=== PATIENT | male | born 1960 | race Caucasian/White ===

== ENCOUNTER 2018-02-06 12:49 | Emergency (ER) | payer BC ==
[2018-02-06] MEDS ORDERED: ASPIRIN 81 MG CHEW PO ONE (12:55)
--- NOTE | 2018-02-06 13:06 | ER Report ---
History and Physical Time Seen By MD: 13:00 Hx. of Stated Complaint: PATIENT STARTED HAVING CHEST PAIN AROUND 7 THIS MORNING HPI/ROS CHIEF COMPLAINT: Chest pain HISTORY OF PRESENT ILLNESS: 50 atrial male no significant cardiac history nonsmoker exercises practically daily times in with complaint of chest pains that is a long history of acid reflux is feels similar to his acid reflux however more intense he did fly in from [facility] is out of state denies nausea vomiting diarrhea. She also the pain is localized in the parasternal area feels like is a hot coal in his chest patient had a very spicy hamburger last evening has not eaten much today patient denies any additional symptoms or complaints REVIEW OF SYSTEMS: Respiratory: No cough, no dyspnea. Cardiovascular: Chest pain or palpitation Gastrointestinal: No vomiting, no abdominal pain. Musculoskeletal: No back pain. Remainder of the 14 system rev: Yes Allergies: Coded Allergies: No Known Drug Allergies (Unverified , 02/06/18) Home Meds No Active Prescriptions or Reported Meds Reviewed Nurses Notes: Yes Old Medical Records Reviewed: Yes Constitutional Vital Sign - Last 24 Hours 02/06/18 12:55 Temp 97.7 Pulse 77 Resp 20 B/P (MAP) 153/100 Pulse Ox 96 O2 Delivery Room Air Physical Exam General Appearance: The patient is alert, has no immediate need for airway protection and no current signs of toxicity. [ ] Eyes: Pupils equal and round no injection. Respiratory: Chest is non tender, lungs are clear to auscultation. Cardiac: regular rate and rhythm [ ] Gastrointestinal: Abdomen is soft and non tender, no masses, bowel sounds normal. Musculoskeletal: Neck: Neck is supple and non tender. Extremities have full range of motion and are non tender. Skin: No rashes or lesions. [ ] DIFFERENTIAL DIAGNOSIS: After history and physical exam differential diagnosis was considered for has reflux esophageal reflux cardiac ischemia pulmonary em boli Medical Decision Making Data Points Result Diagram: 02/06/18 1312 02/06/18 1312 Laboratory Hematology Test 02/06/18 13:12 Red Blood Count 4.96 M/uL (4.00-5.60) Mean Corpuscular Volume 86.5 fL (80.0-96.0) Mean Corpuscular Hemoglobin 29.9 pg (26.0-33.0) Mean Corpuscular Hemoglobin Concent 34.6 g/dL (32.0-36.0) Red Cell Distribution Width 14.0 % (11.5-14.5) Mean Platelet Volume 9.3 fL (7.2-11.1) Neutrophils (%) (Auto) 62.9 % (39.4-72.5) Lymphocytes (%) (Auto) 30.8 % (17.6-49.6) Monocytes (%) (Auto) 5.6 % (4.1-12.4) Eosinophils (%) (Auto) 0.2 % (0.4-6.7) Basophils (%) (Auto) 0.5 % (0.3-1.4) Nucleated RBC Relative Count (auto) 0.0 /100WBC Neutrophils # (Auto) 3.0 K/uL (2.0-7.4) Lymphocytes # (Auto) 1.5 K/uL (1.3-3.6) Monocytes # (Auto) 0.3 K/uL (0.3-1.0) Eosinophils # (Auto) 0.0 K/uL (0.0-0.5) Basophils # (Auto) 0.0 K/uL (0.0-0.1) Nucleated RBC Absolute Count (auto) 0.00 K/uL D-Dimer Quantitative (PE/DVT) < 0.27 ug/ml (0-0.50) Sodium Level 145 mmol/L (137-145) Potassium Level 3.7 mmol/L (3.5-5.0) Chloride Level 105 mmol/L (98-107) Carbon Dioxide Level 28 mmol/L (22-30) Blood Urea Nitrogen 14 mg/dl (9-21) Creatinine 0.90 mg/dl (0.66-1.25) Glomerular Filtration Rate Calc > 60.0 Random Glucose 109 mg/dl (75-110) Calcium Level 9.9 mg/dl (8.4-10.2) Total Bilirubin 0.8 mg/dl (0.2-1.3) Aspartate Amino Transf (AST/SGOT) 31 U/L (0-35) Alanine Aminotransferase (ALT/SGPT) 26 U/L (0-56) Alkaline Phosphatase 64 U/L (0-126) Troponin I < 0.012 ng/ml Total Protein 7.7 g/dl (6.3-8.2) Albumin 4.7 g/dl (3.5-5.0) Chemistry Test 02/06/18 13:12 White Blood Count 4.8 k/uL (4.5-11.0) Red Blood Count 4.96 M/uL (4.00-5.60) Hemoglobin 14.8 g/dL (14.0-18.0) Hematocrit 42.9 % (42.0-52.0) Mean Corpuscular Volume 86.5 fL (80.0-96.0) Mean Corpuscular Hemoglobin 29.9 pg (26.0-33.0) Mean Corpuscular Hemoglobin Concent 34.6 g/dL (32.0-36.0) Red Cell Distribution Width 14.0 % (11.5-14.5) Platelet Count 182 K/uL (150-450) Mean Platelet Volume 9.3 fL (7.2-11.1) Neutrophils (%) (Auto) 62.9 % (39.4-72.5) Lymphocytes (%) (Auto) 30.8 % (17.6-49.6) Monocytes (%) (Auto) 5.6 % (4.1-12.4) Eosinophils (%) (Auto) 0.2 % (0.4-6.7) Basophils (%) (Auto) 0.5 % (0.3-1.4) Nucleated RBC Relative Count (auto) 0.0 /100WBC Neutrophils # (Auto) 3.0 K/uL (2.0-7.4) Lymphocytes # (Auto) 1.5 K/uL (1.3-3.6) Monocytes # (Auto) 0.3 K/uL (0.3-1.0) Eosinophils # (Auto) 0.0 K/uL (0.0-0.5) Basophils # (Auto) 0.0 K/uL (0.0-0.1) Nucleated RBC Absolute Count (auto) 0.00 K/uL D-Dimer Quantitative (PE/DVT) < 0.27 ug/ml (0-0.50) Glomerular Filtration Rate Calc > 60.0 Calcium Level 9.9 mg/dl (8.4-10.2) Total Bilirubin 0.8 mg/dl (0.2-1.3) Aspartate Amino Transf (AST/SGOT) 31 U/L (0-35) Alanine Aminotransferase (ALT/SGPT) 26 U/L (0-56) Alkaline Phosphatase 64 U/L (0-126) Troponin I < 0.012 ng/ml Total Protein 7.7 g/dl (6.3-8.2) Albumin 4.7 g/dl (3.5-5.0) Coagulation Test 02/06/18 13:12 D-Dimer Quantitative (PE/DVT) < 0.27 ug/ml ED Course/Re-evaluation ED Course ED clinical course medical decision making this is a 58-year-old male comes in with atypical chest pain is had a history of reflux very similar to his past experiences states that his symptoms are localized in his chest workup was essentially negative negative cardiac markers x-ray EKG d-dimer patient has 0 risk for cardiac ischemic is no family history is a nonsmoker patient will be discharge diagnosis acid reflux Decision to Disposition Date: Feb 06, 2018 Decision to Disposition Time: 13:54 Depart Departure Latest Vital Signs Vital Signs Date Time Temp Pulse Resp B/P (MAP) Pulse Ox O2 Delivery O2 Flow Rate FiO2 02/06/18 12:55 97.7 77 20 153/100 96 Room Air Impression: Primary Impression: Gastroesophageal reflux Condition: Improved Disposition: HOME OR SELF-CARE New Scripts No Active Prescriptions or Reported Meds Patient Instructions: Gastroesophageal Reflux Disease (DC) VINH WALLACE MD Feb 06, 2018 13:06
--- NOTE | 2018-02-06 13:09 | EKG ---
FACILITY: [facility] - [place] PATIENT NAME: CELY GALAN : [id number] MR: [id number] V: [id number] EXAM DATE: ORDERING PHYSICIAN: VINH WALLACE TECHNOLOGIST: EMMANUEL Hernandez Reason : CHEST PAIN Blood Pressure : / mmHG Vent. Rate : 063 BPM Atrial Rate : 063 BPM P-R Int : 166 ms QRS Dur : 112 ms QT Int : 412 ms P-R-T Axes : 058 061 058 degrees QTc Int : 421 ms Normal sinus rhythm Normal ECG No previous ECGs available Confirmed by ANDRY RUTHERFORD ([id number]) on 02/06/2018 3:20:51 PM Referred By: Confirmed By:ANDRY RUTHERFORD
[2018-02-06 13:38] LABS: PLATELET COUNT, AUTOMATED 182 K/uL (150-450)
--- NOTE | 2018-02-06 13:39 | RADIOLOGY IMAGING REPORT ---
FACILITY: [facility] PATIENT NAME: Regan Marcos : 1960 MR: [id number] V: [id number] EXAM DATE: ORDERING PHYSICIAN: VINH WALLACE TECHNOLOGIST: Location: [facility] Patient: Regan Marcos : 1960 Visit/Account:[id number] Date of Sevice: 02/06/2018 2 VIEWS CHEST INDICATION: Chest pain. COMPARISON: None available FINDINGS: Heart size within normal limits. Lungs are clear without focal infiltrate, consolidation, effusion or pneumothorax. No acute bony finding IMPRESSION: 1. No acute cardiopulmonary process. Report Dictated By: Vinh Ponce MD at 02/06/2018 1:34 PM Report E-Signed By: Vinh Ponce MD at 02/06/2018 1:34 PM WSN:[id number]
[2018-02-06 13:57] VITALS: BP 140/91
== END 2018-02-06 14:04 | disposition home or self-care (01) ==
LOC: ER 13:00
DX: K21.9 Gastro-esophageal reflux disease without esophagitis (principal)
CPT/HCPCS: 71046; 82040; 82247; 82310; 82374; 82435; 82565; 82947; 84075; 84132; 84155; 84295; 84450; 84460; 84484; 84520; 85025; 85379; 93005; 99284